=== PATIENT | male | born 1990 | race African-American/Black ===

== ENCOUNTER 2017-08-18 12:15 | Emergency (ER) | payer OTHER ==
[~2017-08-18 12:15] MED LIST: ANUSOL-HC21 GM RC; IBUPROFEN 600600 M1 PO; NAPROSYN500 MG PO; NOHOMEMEDICATIONS; OSELB75 PO
[2017-08-18 12:25] VITALS: BP 106/74
[2017-08-18] MEDS ORDERED: ACYCLOVIR 200200 MG PO (13:00)
[2017-08-20 19:07] LABS: HSV 1 DNA Negative (Negative); HSV 2 DNA Positive (Negative)
[2017-08-23 12:43] LABS: HSV PCR SOURCE PENIS
== END 2017-08-18 14:33 | disposition home or self-care (01) ==
LOC: ER 12:15
PROVIDERS: Emergency Medicine
DX: A60.02 Herpesviral infection of other male genital organs (principal); Z91.018 Allergy to other foods; Z87.891 Personal history of nicotine dependence

== ENCOUNTER 2021-04-06 10:44 | Emergency (ER) | payer OTHER ==
[~2021-04-06] VITALS: Ht 175.3 cm; Wt 95.3 kg
[~2021-04-06 10:44] MED LIST changes: +ACYCLOVIR 200200 MG PO
[2021-04-06 10:50] VITALS: BP 121/88
[2021-04-06] MEDS ORDERED: AUGMENTIN 875-1 EACH PO ×2 (11:02→19:13)
== END 2021-04-06 11:07 | disposition home or self-care (01) ==
LOC: ER 10:44
DX: S01.511A Laceration without foreign body of lip, initial encounter (principal); F17.210 Nicotine dependence, cigarettes, uncomplicated; Z91.018 Allergy to other foods; W22.8XXA Striking against or struck by other objects, initial encounter; Y93.89 Activity, other specified; Y92.89 Other specified places as the place of occurrence of the external cause; Y99.8 Other external cause status; Z98.890 Other specified postprocedural states